=== PATIENT | female | born 1965 | race Hispanic/Latino ===

== ENCOUNTER 2019-02-12 17:11 | Emergency (ER) | payer OTHER ==
--- NOTE | 2019-02-12 18:18 | ER ---
Nurse's Notes [facility] Name: Donya Villela Age: 53 yrs Sex: Female : 1965 Arrival Date: 02/12/2019 Time: 17:19 Bed 12 Private MD: Diagnosis: Otitis media, unspecified, left ear;Cough Presentation: 02/12 17:31 Presenting complaint: Cough, left ear pain, and fever x 1 week. TMAX 101. Transition of hb care: patient was not received from another setting of care. Onset of symptoms is unknown. Risk Assessment: Do you want to hurt yourself or someone else? Patient reports no desire to harm self or others. Initial Sepsis Screen: Does the patient meet any 2 criteria? No. Patient's initial sepsis screen is negative. Does the patient have a suspected source of infection? No. Patient's initial sepsis screen is negative. Care prior to arrival: Medication(s) given: Motrin, at 1545. 17:31 Method Of Arrival: Ambulatory hb 17:31 Acuity: SEAN 4 hb Triage Assessment: 17:32 General: Appears in no apparent distress. Behavior is calm, cooperative. Pain: Pain hb currently is 5 out of 10 on a pain scale. EENT: Reports pain since left ear. Neuro: Level of Consciousness is awake, alert, obeys commands, Oriented to person, place, time, situation. Cardiovascular: Capillary refill < 3 seconds Patient's skin is warm and dry. Respiratory: Airway is patent Respiratory effort is even, unlabored, Respiratory pattern is regular, symmetrical. NEWS ASSISTANT: 17:32 LMP N/A - Hysterectomy hb Historical: - Allergies: 17:32 Ultram; hb - Home Meds: 17:32 metoprolol tartrate 100 mg Oral tab 1 tab 2 times per day [Active]; acyclovir 400 mg hb Oral tab daily [Active]; 17:34 gabapentin oral oral [Active]; losartan oral oral [Active]; Xanax Oral [Active]; hb - PMHx: 17:32 Hypertension; hb - PSHx: 17:32 None; hb - Immunization history:: Adult Immunizations up to date. - Social history:: Smoking status: Patient uses tobacco products, vape. - Ebola Screening: : No symptoms or risks identified at this time. Screenin:35 Abuse screen: Denies threats or abuse. Denies injuries from another. Nutritional hb screening: No deficits noted. Tuberculosis screening: No symptoms or risk factors identified. Fall Risk None identified. Assessment: 17:35 General: see triage assessment. hb 18:30 Reassessment: Patient appears in no apparent distress at this time. No changes from hb previously documented assessment. Patient and/or family updated on plan of care and expected duration. Pain level reassessed. Patient is alert, oriented x 3, equal unlabored respirations, skin warm/dry/pink. Vital Signs: 17:32 BP 174 / 93; Pulse 80; Resp 16; Temp 98.5; Pulse Ox 100% on R/A; Weight 82.55 kg; hb Height 5 ft. 3 in. (160.02 cm); Pain 5/10; 17:32 Body Mass Index 32.24 (82.55 kg, 160.02 cm) hb ED Course: 17:19 Patient arrived in ED. mr 17:31 Triage completed. hb 17:32 Arm band placed on. hb 17:35 Patient has correct armband on for positive identification. Call light in reach. hb 18:00 Emma Leo, RN is Primary Nurse. hb 18:00 Serg Newberry NP is PHCP. pm1 18:00 Dipak Galdamez MD is Attending Physician. pm1 18:35 No provider procedures requiring assistance completed. hb 18:35 Patient did not have IV access during this emergency room visit. hb Administered Medications: No medications were administered Outcome: 18:17 Discharge ordered by MD. pm1 18:35 Discharged to home ambulatory, with family. hb 18:35 Condition: stable 18:35 Discharge instructions given to patient, Instructed on discharge instructions, follow up and referral plans. medication usage, Demonstrated understanding of instructions, follow-up care, medications, Prescriptions given X 2. 18:41 Patient left the ED. hb Signatures: Lauryn Solano mr Serg Newberry, MARCO AUTOMATIC PATTERN EDGER pm1 Emma Leo, SHORTY RN
--- NOTE | 2019-02-12 18:18 | EDPHYS ---
Physician Documentation [facility] Name: Donya Villela Age: 53 yrs Sex: Female : 1965 Arrival Date: 02/12/2019 Time: 17:19 Bed 12 Private MD: ED Physician Dipak Galdamez HPI: 02/12 18:16 This 53 yrs old Female presents to ER via Ambulatory with complaints of Cough, pm1 Fever, Ear Pain. 18:16 The patient or guardian reports cough, left ear pain. Onset: The symptoms/episode pm1 began/occurred 1 week(s) ago. Severity of symptoms: in the emergency department the symptoms. Modifying factors: The symptoms are alleviated by nothing, the symptoms are aggravated by nothing. Associated signs and symptoms: Pertinent positives: fever a for one day a few days ago that has resolved, Pertinent negatives: chest pain, diarrhea, rhinorrhea, sore throat, vomiting. The patient has not experienced similar symptoms in the past. The patient has not recently seen a physician. CONTENT CURATOR: 17:32 LMP N/A - Hysterectomy hb Historical: - Allergies: 17:32 Ultram; hb - Home Meds: 17:32 metoprolol tartrate 100 mg Oral tab 1 tab 2 times per day [Active]; acyclovir 400 mg hb Oral tab daily [Active]; 17:34 gabapentin oral oral [Active]; losartan oral oral [Active]; Xanax Oral [Active]; hb - PMHx: 17:32 Hypertension; hb - PSHx: 17:32 None; hb - Immunization history:: Adult Immunizations up to date. - Social history:: Smoking status: Patient uses tobacco products, vape. - Ebola Screening: : No symptoms or risks identified at this time. ROS: 18:16 Eyes: Negative for injury, pain, redness, and discharge, Neck: Negative for injury, pm1 pain, and swelling, Cardiovascular: Negative for chest pain, palpitations, and edema, Abdomen/GI: Negative for abdominal pain, nausea, vomiting, diarrhea, and constipation, Back: Negative for injury and pain. 18:16 : Negative for injury, bleeding, discharge, and swelling, MS/Extremity: Negative for injury and deformity, Skin: Negative for injury, rash, and discoloration. 18:16 Neuro: Negative for headache, weakness, numbness, tingling, and seizure. 18:16 Constitutional: Positive for fever, Negative for poor PO intake. 18:16 ENT: Positive for ear pain, Negative for drainage from ear(s), rhinorrhea, sore throat. 18:16 Respiratory: Positive for cough. Exam: 18:16 Constitutional: This is a well developed, well nourished patient who is awake, alert, pm1 and in no acute distress. Head/Face: Normocephalic, atraumatic. Eyes: Pupils equal round and reactive to light, extra-ocular motions intact. Lids and lashes normal. Conjunctiva and sclera are non-icteric and not injected. Cornea within normal limits. Periorbital areas with no swelling, redness, or edema. Neck: Trachea midline, no thyromegaly or masses palpated, and no cervical lymphadenopathy. Supple, full range of motion without nuchal rigidity, or vertebral point tenderness. No Meningismus. Chest/axilla: Normal chest wall appearance and motion. Nontender with no deformity. No lesions are appreciated. Cardiovascular: Regular rate and rhythm with a normal S1 and S2. No gallops, murmurs, or rubs. Normal PMI, no JVD. No pulse deficits. Respiratory: Lungs have equal breath sounds bilaterally, clear to auscultation and percussion. No rales, rhonchi or wheezes noted. No increased work of breathing, no retractions or nasal flaring. Abdomen/GI: Soft, non-tender, with normal bowel sounds. No distension or tympany. No guarding or rebound. No evidence of tenderness throughout. Back: No spinal tenderness. No costovertebral tenderness. Full range of motion. 18:16 Skin: Warm, dry with normal turgor. Normal color with no rashes, no lesions, and no evidence of cellulitis. MS/ Extremity: Pulses equal, no cyanosis. Neurovascular intact. Full, normal range of motion. 18:16 ENT: External ear(s): are unremarkable, Ear canal(s): are normal, TM's: bulging, on the left, erythema, that is mild, on the left, Nose: is normal, Mouth: is normal, Posterior pharynx: is normal, airway is patent, no erythema, no exudate, no peritonsilar mass, no pooling of secretions, no swelling. 18:16 Neuro: Orientation: is normal, Motor: is normal, moves all fours, Gait: is steady, at a normal pace, without difficulty. Vital Signs: 17:32 BP 174 / 93; Pulse 80; Resp 16; Temp 98.5; Pulse Ox 100% on R/A; Weight 82.55 kg; hb Height 5 ft. 3 in. (160.02 cm); Pain 5/10; 17:32 Body Mass Index 32.24 (82.55 kg, 160.02 cm) hb MDM: 18:05 Patient medically screened. pm1 18:16 Data reviewed: vital signs. Data interpreted: Pulse oximetry: on room air is 100 %. pm1 Interpretation: normal. Counseling: I had a detailed discussion with the patient and/or guardian regarding: the historical points, exam findings, and any diagnostic results supporting the discharge/admit diagnosis, the need for outpatient follow up, to return to the emergency department if symptoms worsen or persist or if there are any questions or concerns that arise at home. Administered Medications: No medications were administered Disposition: 02/12/19 18:17 Discharged to Home. Impression: Otitis media, unspecified, left ear, Cough. - Condition is Stable. - Discharge Instructions: Otitis Media, Adult, [id number], Cough, Adult, [id number]. - Prescriptions for Zithromax Z- Sergey 250 mg Oral Tablet - take 1 tablet by ORAL route as directed for 5 days Day 1 - take two (2) tablets one time. Day 2, 3, 4 , 5 take one (1) tablet once daily.; 6 tablet. Guaifenesin AC 10- 100 mg/5 mL Oral Liquid - take 10 milliliter by ORAL route every 4 hours As needed; 240 milliliter. - Medication Reconciliation Form, Thank You Letter, Antibiotic Education, Prescription Opioid Use form. - Follow up: Emergency Department; When: As needed; Reason: Worsening of condition. Follow up: Private Physician; When: 2 - 3 days; Reason: Recheck today's complaints, Continuance of care, Re-evaluation by your physician. - Problem is new. - Symptoms have improved. Signatures: Serg Newberry NP TRAVEL OCCUPATIONAL THERAPIST pm1 Emma Leo RN RN Corrections: (The following items were deleted from the chart) 18:41 18:17 02/12/2019 18:17 Discharged to Home. Impression: Otitis media, unspecified, left hb ear; Cough. Condition is Stable. Forms are Medication Reconciliation Form, Thank You Letter, Antibiotic Education, Prescription Opioid Use. Follow up: Emergency Department; When: As needed; Reason: Worsening of condition. Follow up: Private Physician; When: 2 - 3 days; Reason: Recheck today's complaints, Continuance of care, Re-evaluation by your physician. Problem is new. Symptoms have improved. pm1
== END 2019-02-12 18:41 | disposition home or self-care (01) ==
LOC: ER 17:11
DX: H66.92 Otitis media, unspecified, left ear (principal); R05 Cough; I10 Essential (primary) hypertension; Z72.0 Tobacco use; Z88.1 Allergy status to other antibiotic agents
CPT/HCPCS: 99282

== ENCOUNTER 2023-01-11 06:45 | Emergency (ER) | payer OTHER ==
--- OUTSIDE RECORDS SUMMARY | 2023-01-11 06:48 | XMS REPORT | Continuity of Care Document ---
:1965 Author Organization [facility] t Address [address] [place] [address] Care Team Providers Name Role Phone WILIAN JONES Primary Care Physician Unavailable SHERRY KAMARA Attending Clinician Unavailable WILIAN JONES Attending Clinician Unavailable Doctor Unassigned, [place] Attending Clinician Unavailable Payers Payer Name Policy Type Policy Number Effective Date Expiration Date [facility] [id number] 2022 INSURANCE 00:00:00 Problems Condition Condition Condition Status Onset Resolution Last Treating Co mments Source Name Details Category Date Date Treatment Clinician Date Dysfunctio Dysfunctio Disease Active 2014-08 U nivers nal nal 1-17 ity of uterine uterine 00:00: [place] bleeding bleeding 00 [facility] H/O tubal H/O tubal Disease Active 2014-08 Uni vers ligation ligation 0-19 ity of 00:00: [place] 00 [facility] 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 7-08 ity of 00:00: [place] 00 [facility] Hypertensi Hypertensi Disease Active U nivers on on 5-21 ity of 00:00: [place] 00 [facility] Migraines Migraines Disease Active Uni vers 5-21 ity of 00:00: [place] 00 [facility] Esophageal Esophageal Disease Active U nivers reflux reflux 5- ity of 00:00: [place] 00 [facility] Excessive Excessive Disease Active Uni vers or or 5- ity of frequent frequent 00:00: [place] menstruati menstruati 00 Me dical on on Branch Tobacco Tobacco Disease Active Univers use use 5-21 ity of disorder disorder 00:00: [place] 00 [facility] Lump or Lump or Disease Active Univers mass in mass in 01-06 ity of breast breast 00:00: [facility] Allergies, Adverse Reactions, Alerts Allergy Allergy Status Severity Reaction(s) Onset Inactive Treating Comm ents Source Name Type Date Date Clinician Tramadol Propensi Active Rash Univer s Hcl ty to 01-06 ity of adverse 00:00: [place] reaction [facility] TRAMADOL DRUG Active Rash Univers HCL INGREDI 01-06 ity of 00:00: [place] 00 [facility] Social History Social Habit Start Date Stop Date Quantity Comments Source History of tobacco Cigarette Smoker University of use [facility] Cigarettes smoked 2016-09-25 2016-09-25 Univers ity of current (pack per 00:00:00 00:00:00 ) - Reported [place] Cigarette 2016-09-25 2016-09-25 University of pack-years 00:00:00 00:00:00 [facility] Tobacco use and 2016-09-25 2016-09-25 Smokeless tobacco Un iversity of exposure 00:00:00 00:00:00 non-user [facility] Alcohol intake 2016-09-25 2016-09-25 0 /d University of 00:00:00 00:00:00 [facility] Tobacco Comment 2016-09-25 2016-09-25 6 cigarettes per Uni versity of 00:00:00 00:00:00 day [facility] Alcohol Comment 2013-01-06 2013-01-06 2 x per month Univer sity of 00:00:00 00:00:00 [facility] Sex Ass[birth year] At [birth year] Universit y of 00:00:00 00:00:00 [facility] Smoking Status Start Date Stop Date Source Smokes tobacco daily 2016-09-25 00:00:00 Univers ity of [facility] Medications Ordered Filled Start Stop Current Ordering Indication Dosage Frequency Signature Comments Components Source Medication Medication Date Date Medication? Clinician (SIG) Name Name multivitami Yes 1{capsu Take 1 U nivers n capsule 2-07 le} capsule by ity of 15:30: mouth [place] 57 daily. Medical Branch ferrous Yes 325mg Take 325 Unive rs sulfate 325 2-07 mg by ity of mg (65 mg 15:30: mouth 3 [place] iron) 57 (three) Medical tablet times [place] daily with meals. medroxyPROG 2017-0 Yes [id number] 5mg Take 1 Univers ESTERone 5 2-07 tablet by ity of mg tablet 00:00: mouth [place] 00 daily. [facility] Immunizations Ordered Filled Immunization Date Status Comments Sour e Immunization Name Name TD, NOS 2007-08-19 Completed [facility] 00:00:00 [facility] Procedures Procedure Date / Time Performed Performing Clinician Sour e ASSIGNMENT OF BENEFITS 2022-10-23 16:36:44 Doctor Unassigned, No [facility] Encounters Start End Encounter Admission Attending Care Care Encounter Source Date/Time Date/Time Type Type Clinicians Facility Department ID 2022-10-23 2022-10-23 [id number] Univers 10:45:00 10:45:00 [facility] 2022-10-23 2022-10-23 Outpatient Hussain JONES [facility] [id number] Univers 10:45:00 10:45:00 [facility] 2022-10-23 2022-10-23 [id number] Univers 10:15:00 10:15:00 [facility] 2022-10-23 2022-10-23 Orders Doctor EDUARDO [id number] Univers 00:00:00 00:00:00 Only Unassigned, RAMAKRISHNA [id number] ity of [place] [facility] [id number] Darryl as [id number] [place] [id number] Branch Results This patient has no known results.
--- NOTE | 2023-01-11 07:58 | RAD REPORT ---
EXAM DESCRIPTION: CT - Head C Spine Mpr Wo Con - 01/11/2023 7:29 am CLINICAL HISTORY: Head and neck injury status post fall. Head and neck pain COMPARISON: None. TECHNIQUE: Computed axial tomography of the head and cervical spine was obtained. Sagittal and coronal reconstruction was performed. All CT scans are performed using dose optimization technique as appropriate and may include automated exposure control or mA/KV adjustment according to patient size. FINDINGS: An intracranial bleed is not seen. The ventricles are normal in caliber. No significant hypodensity within the brain. An extra-axial fluid collection is not noted. Fluid within the visualized sinuses and mastoids is not seen A cervical fracture is not visualized. No dislocation is noted. IMPRESSION: No acute intracranial abnormality is seen. A cervical fracture is not visualized. If the patient continues to have symptoms to suggest intracranial /spinal cord pathology then MRI wou ld be recommended
--- NOTE | 2023-01-11 08:19 | RAD REPORT ---
EXAM DESCRIPTION: CTSpine Lumbar Wo Con01/11/2023 7:43 am CLINICAL HISTORY: Back pain status post fall COMPARISON: None TECHNIQUE: Computed axial tomography lumbar spine was obtained with coronal and sagittal reconstruct ion. All CT scans are performed using dose optimization technique as appropriate and may include automated exposure control or mA/KV adjustment according to patient size. FINDINGS: No fracture is visualized. No dislocation A large disc bulge/herniation not seen IMPRESSION: Negative for a lumbar fracture. If patient continues have symptoms to suggest lumbar canal pathology MRI would be recommended
--- NOTE | 2023-01-11 08:24 | ER ---
Nurse's Notes [facility] Name: Donya Villela Age: 57 yrs Sex: Female : 1965 Arrival Date: 01/11/2023 Time: 06:45 Bed IW1 Private MD: Diagnosis: Fall on same level, unspecified;Unspecified injury of head, initial encounter;Bitten by dog Presentation: 01/11 07:02 Chief complaint: Patient states: Lost balance, fell back, hit head on wall, reports jl7 pain to neck and left shoulder. 07:02 Coronavirus screen: At this time, the client does not indicate any symptoms associated jl7 with coronavirus-19. Ebola Screen: No symptoms or risks identified at this time. Initial Sepsis Screen: Does the patient meet any 2 criteria? No. Patient's initial sepsis screen is negative. Does the patient have a suspected source of infection? No. Patient's initial sepsis screen is negative. Risk Assessment: Do you want to hurt yourself or someone else? Patient reports no desire to harm self or others. Onset of symptoms was January 11, 2023 at 05:45. 07:02 Method Of Arrival: Ambulatory jl7 07:02 Acuity: SEAN 4 jl7 07:[address] SOLITARIO IN TRIAGE ASSESSING PT. jl7 07:10 Chief complaint: Patient states: Pt also reports dog bite to right middle finger jl7 yesterday. Triage Assessment: 07:10 General: Appears in no apparent distress. uncomfortable, Behavior is calm, cooperative, jl7 appropriate for age. Pain: Complains of pain in neck and shoulder Pain currently is 6 out of 10 on a pain scale. Historical: - Allergies: 07:10 Ultram; jl7 - Home Meds: 07:10 metoprolol tartrate 100 mg Oral tab 1 tab 2 times per day [Active]; losartan Oral jl7 [Active]; Xanax Oral [Active]; Magnesium Oxide Oral [Active]; - PMHx: 07:10 Hypertension; Hypertensive disorder; Anxiety; jl7 - Immunization history:: Last tetanus immunization: unknown. - Social history:: Smoking status: Reported history of juuling and/or vaping. - Family history:: not pertinent. - Hospitalizations: : No recent hospitalization is reported. Assessment: 08:20 Reassessment: Patient appears in no apparent distress at this time. No changes from jl7 previously documented assessment. Patient and/or family updated on plan of care and expected duration. Pain level reassessed. Patient is alert, oriented x 3, equal unlabored respirations, skin warm/dry/pink. Vital Signs: 07:02 BP 173 / 116; Pulse 71; Resp 17; Temp 97.9; Pulse Ox 97% ; jl7 07:10 Weight 95.25 kg; Height 5 ft. 2 in. ; jl7 08:44 BP 165 / 117; Pulse 64; Resp 17; Temp 97.4; Pulse Ox 97% ; jl7 07:10 Body Mass Index 38.41 (95.25 kg, 157.48 cm) jl7 ED Course: 06:46 Patient arrived in ED. ja2 06:58 Sanchez Solitario MD is Attending Physician. rn 07:08 Diana Eng RN is Primary Nurse. jl7 07:10 Triage completed. jl7 07:10 Arm band placed on right wrist. Patient placed in waiting room, Patient notified of jl7 wait time. 07:31 CT Head C Spine In Process Unspecified. EDMS 07:43 Spine Lumbar Wo Con In Process Unspecified. EDMS 08:44 No provider procedures requiring assistance completed. Patient did not have IV access jl7 during this emergency room visit. Administered Medications: No medications were administered Medication: 08:44 VIS not applicable for this client. jl7 Outcome: 08:23 Discharge ordered by . rn 08:44 Discharged to home ambulatory. jl7 08:44 Condition: stable 08:44 Discharge instructions given to patient, Instructed on discharge instructions, follow up and referral plans. medication usage, Demonstrated understanding of instructions, follow-up care, medications, Prescriptions given X 1. 08:44 Patient left the ED. jl7 Signatures: Dispatcher [employer] EDMS Sanchez Solitario MD MD rn Leal, Jahala, RN RN [email or web address] Savita Adler
--- NOTE | 2023-01-11 08:24 | EDPHYS ---
Physician Documentation [facility] Name: Donya Villela Age: 57 yrs Sex: Female : 1965 Arrival Date: 01/11/2023 Time: 06:45 Bed IW1 Private MD: ED Physician Sanchez Solitario HPI: 01/11 07:40 This 57 yrs old Female presents to ER via Ambulatory with complaints of Fall rn Injury, Dog Bite. 07:40 Details of fall: The patient fell from an upright position, while walking. Onset: The rn symptoms/episode began/occurred just prior to arrival. Associated injuries: The patient sustained injury to the head, neck injury. Severity of symptoms: At their worst the symptoms were mild, in the emergency department the symptoms have improved. The patient has not experienced similar symptoms in the past. Pt reports lost her balance, fell backward, hit head on wall, no LOC, no vomiting, doesn't take blood thinners, remembers all events, no seizure. Also reports yesterday her own dog bit her right middle finger in "playful fashion", and wanted to get it checked. No finger swelling or erythema/purulence. Denies injury or pain other than head. . Historical: - Allergies: 07:10 Ultram; jl7 - Home Meds: 07:10 metoprolol tartrate 100 mg Oral tab 1 tab 2 times per day [Active]; losartan Oral jl7 [Active]; Xanax Oral [Active]; Magnesium Oxide Oral [Active]; - PMHx: 07:10 Hypertension; Hypertensive disorder; Anxiety; jl7 - Immunization history:: Last tetanus immunization: unknown. - Social history:: Smoking status: Reported history of juuling and/or vaping. - Family history:: not pertinent. - Hospitalizations: : No recent hospitalization is reported. ROS: 08:20 Constitutional: Negative for fever, chills, and weight loss, Eyes: Negative for injury, rn pain, redness, and discharge, Neck: + neck pain Cardiovascular: Negative for chest pain, palpitations, and edema, Respiratory: Negative for shortness of breath, cough, wheezing, and pleuritic chest pain, Abdomen/GI: Negative for abdominal pain, nausea, vomiting, diarrhea, and constipation, Back: Negative for injury and pain, MS/Extremity: + dog bite to right middle finger Skin: Negative for injury, rash, and discoloration, Neuro: + headache Exam: 08:20 Constitutional: This is a well developed, well nourished patient who is awake, alert, rn and in no acute distress. Head/Face: Normocephalic, + posterior scalp with hematoma Eyes: Pupils equal round and reactive to light, extra-ocular motions intact. Periorbital areas with no swelling, redness, or edema. Neck: No bony tenderness in cspine Cardiovascular: Regular rate and rhythm. No pulse deficits. Respiratory: No increased work of breathing, no retractions or nasal flaring. Back: No spinal tenderness. No costovertebral tenderness. Full range of motion. Skin: Warm, dry with normal turgor. Normal color with no rashes, no lesions, and no evidence of cellulitis. MS/ Extremity: Pulses equal, no cyanosis. Neurovascular intact. Full, normal range of motion. Equal circumference. Small superficial abrasions to right 3rd digit, no purulence, no erythema or warmth Neuro: Awake and alert, GCS 15, oriented to person, place, time, and situation. Cranial nerves II-XII grossly intact. Motor strength 5/5 in all extremities. Sensory grossly intact. Cerebellar exam normal. Normal gait. Vital Signs: 07:02 BP 173 / 116; Pulse 71; Resp 17; Temp 97.9; Pulse Ox 97% ; 7 07:10 Weight 95.25 kg; Height 5 ft. 2 in. ; 7 08:44 BP 165 / 117; Pulse 64; Resp 17; Temp 97.4; Pulse Ox 97% ; 7 07:10 Body Mass Index 38.41 (95.25 kg, 157.48 cm) [facility] MDM: 06:58 Patient medically screened. rn 08:22 Differential diagnosis: abrasion, closed head injury, contusion, fracture, sprain, rn strain. Data reviewed: vital signs, nurses notes, radiologic studies, CT scan, and as a result, I will discharge patient. Care significantly affected by the following chronic conditions: Hypertension. Counseling: I had a detailed discussion with the patient and/or guardian regarding: the historical points, exam findings, and any diagnostic results supporting the discharge/admit diagnosis, radiology results, the need for outpatient follow up, to return to the emergency department if symptoms worsen or persist or if there are any questions or concerns that arise at home. Special discussion: Based on the patient's history, exam and DX evaluation, there is no indication for emergent intervention or inpatient TX. It is understood by the patient/guardian that if the SXs persist or worsen they need to return immediately for re-evaluation. I discussed with the patient/guardian in detail that at this point there is no indication for admission to the hospital. It is understood, however, that if the symptoms persist or worsen the patient needs to return immediately for re-evaluation. 01/11 07:12 Order name: CT Head C Spine; Complete Time: 08:03 rn 01/11 07:38 Order name: Spine Lumbar Wo Con EDMS Administered Medications: No medications were administered Disposition Summary: 01/11/23 08:23 Discharge Ordered Location: Home rn Problem: new rn Symptoms: have improved rn Condition: Stable rn Diagnosis - Fall on same level, unspecified rn - Unspecified injury of head, initial encounter rn - Bitten by dog rn Followup: rn - With: Private Physician - When: As needed - Reason: Recheck today's complaints, Re-evaluation by your physician Discharge Instructions: - Discharge Summary Sheet rn - Head Injury, Adult rn - Animal Bite, Adult rn Forms: - Medication Reconciliation Form rn - Thank You Letter rn - Antibiotic music journalist - Prescription Opioid Use rn - Work release form am2 Prescriptions: - Augmentin 875-125 mg Oral Tablet - take 1 tablet by ORAL route every 12 hours for 10 days; 20 tablet; Refills: 0, rn Product Selection Permitted Signatures: Dispatcher [facility] EDMS Sanchez Solitario MD MD rn Leal, Jahala, RN RN jl7 Corrections: (The following items were deleted from the chart) 08:30 07:40 Pt reports lost her balance, fell backward, hit head on wall, no LOC, no rn vomiting, doesn't take blood thinners, remembers all events, no seizure. Also reports yesterday her own dog bit her right 2nd finger in "playful fashion", and wanted to get it checked. No finger swelling or erythema/purulence. Denies injury or pain other than head. . rn 08:30 08:20 Constitutional: Negative for fever, chills, and weight loss, Eyes: Negative for rn injury, pain, redness, and discharge, Neck: + neck pain Cardiovascular: Negative for chest pain, palpitations, and edema, Respiratory: Negative for shortness of breath, cough, wheezing, and pleuritic chest pain, Abdomen/GI: Negative for abdominal pain, nausea, vomiting, diarrhea, and constipation, Back: Negative for injury and pain, MS/Extremity: + dog bite to right 2nd finger Skin: Negative for injury, rash, and discoloration, Neuro: + headache rn 08:30 08:20 Constitutional: This is a well developed, well nourished patient who is awake, rn alert, and in no acute distress. Head/Face: Normocephalic, + posterior scalp with hematoma Eyes: Pupils equal round and reactive to light, extra-ocular motions intact. Periorbital areas with no swelling, redness, or edema. Neck: No bony tenderness in cspine Cardiovascular: Regular rate and rhythm. No pulse deficits. Respiratory: No increased work of breathing, no retractions or nasal flaring. Back: No spinal tenderness. No costovertebral tenderness. Full range of motion. Skin: Warm, dry with normal turgor. Normal color with no rashes, no lesions, and no evidence of cellulitis. MS/ Extremity: Pulses equal, no cyanosis. Neurovascular intact. Full, normal range of motion. Equal circumference. Small superficial abrasions to right 2nd digit, no purulence, no erythema or warmth Neuro: Awake and alert, GCS 15, oriented to person, place, time, and situation. Cranial nerves II-XII grossly intact. Motor strength 5/5 in all extremities. Sensory grossly intact. Cerebellar exam normal. Normal gait. rn
[2023-01-11 08:48] VITALS: O2SAT 97
[2023-01-11 08:49] VITALS: BP 165/117; TEMP 97.4
== END 2023-01-11 08:44 | disposition home or self-care (01) ==
LOC: ER 06:45
DX: S09.90XA Unspecified injury of head, initial encounter (principal); W18.30XA Fall on same level, unspecified, initial encounter; W54.0XXA Bitten by dog, initial encounter; I10 Essential (primary) hypertension; F41.9 Anxiety disorder, unspecified; Z88.6 Allergy status to analgesic agent
CPT/HCPCS: 70450; 72125; 72131; 99283